=== PATIENT | female | born 1950 | race Caucasian/White ===

== ENCOUNTER 2019-08-26 07:56 | Outpatient (CLI) | payer MEDICARE, OTHER ==
--- NOTE | 2019-08-26 10:26 | CT ---
CTA NECK WITH CONTRAST: INDICATIONS: Neck pain. Cervical radiculopathy and stenosis. HNP and degenerative disk disease are all listed as r easons for exam. TECHNIQUE: Axial tomograms obtained with multiplanar reconstruction and 3D post processing following angio judy col. FINDINGS: Mild atherosclerotic change is seen at the aortic arch. No stenosis at the origin of the arch vessels . The common carotid arteries appear patent and symmetric with no significant atherosclerotic disease. Mild atherosclerotic change seen at the bulbs bilaterally however no stenosis seen in either internal carotid artery. Vertebral arteries are patent and symmetric. Visualized basilar artery appears unremarkable. Intracranial internal carotid arteries are imaged on this exam and appear unremarkable. Review of osseous structures show moderately severe degenerative disk disease involving the cervical spine. Disk narrowing, hypertrophic spurring and spondylosis is prominent at the C3-C4, C4-C5 and C5- C6 levels. C3-C4: Posterior disk bulge and spondylosis compress the cord, producing moderate cervical canal sten osis. Cord compression is more pronounced paracentrally to the left. There is left foraminal stenosis . C4-C5: Slight posterior listhesis is combined with posterior disk bulge and spondylosis. These change s severely compress the cord, resulting in moderate cervical canal stenosis. Bilateral foraminal sten osis. C5-C6: Disk bulge and spondylosis compress the cord resulting in mild to moderate cervical canal sten osis. C6-C7: Posterior disk bulge and spondylosis abut the anterior cord, resulting in mild cervical canal stenosis. Mild left foraminal encroachment due to uncinate hypertrophy. No soft tissue abnormality identified. Incidentally noted is an intraosseous pneumatocyst involving the C4 vertebra, seen posteriorly within this vertebral body, measuring up to 1 cm. IMPRESSION: 1. No evidence of carotid artery stenosis. 2. Moderate to severe degenerative spondylitic changes in the cervical spine with cervical canal sten osis and cord compression, as described above. POS: [facility]
[2019-08-26] MEDS ORDERED: Iopamidol 370 76% 100 ML VIAL ONE (11:29)
== END 2019-08-26 07:57 | disposition home or self-care (01) ==
LOC: CT 07:56 → EDBD 08:30
PROVIDERS: ATTEND Physician Assistant Surgical
DX: M50.10 Cervical disc disorder with radiculopathy, unspecified cervical region (principal); M47.12 Other spondylosis with myelopathy, cervical region; M48.02 Spinal stenosis, cervical region; M50.00 Cervical disc disorder with myelopathy, unspecified cervical region; M47.22 Other spondylosis with radiculopathy, cervical region; G95.20 Unspecified cord compression
CPT/HCPCS: 70498; 82565; Q9967

== ENCOUNTER 2019-10-04 08:17 | Inpatient (IN) | payer MEDICARE, OTHER ==
[2019-10-03 10:27] VITALS: BMI 17.1
[2019-10-04] MEDS ORDERED: Scopolamine 1.5 mg/72 hour Patch ONE (09:06)
[2019-10-04 09:23] LABS: INR-International Normal Ratio 1.1; PTT 27.9 SEC (22.9-36.1); Prothrombin Time 13.8 SEC (12.0-14.7)
[2019-10-04 09:25] LABS: Hemoglobin 16.1 g/dL (12.0-16.0); Mean Corpuscular HGB CONC 33.2 g/dL (32.0-36.0); Mean Corpuscular Hemoglobin 32.1 pg (27.0-31.0); Mean Corpuscular Volume 96.8 fL (78.0-98.0); Mean Platelet Volume 6.5 fL (7.4-10.4); Platelet Count 260 thou/uL (130-400); RBC Distribution Width 11.3 % (11.5-14.5); Red Blood Cell (RBC) Count 5.03 mill/uL (4.20-5.40); White Blood Cell (WBC) Count 5.6 thou/uL (4.8-10.8)
[2019-10-04] MEDS ORDERED: Fentanyl 100 MCG/2 ML VIAL ONE (09:25)
[2019-10-04] MEDS ORDERED: Bacitracin Zinc Ointment 30 gm TUBE ONE (09:35)
[2019-10-04] MEDS ORDERED: Thrombin 5000 UNITS/5 ML VIAL ONE (09:35)
[2019-10-04 09:50] LABS: Anion Gap 13 mmol/L (10-20); BUN (Urea Nitrogen) 15 mg/dL (9.8-20.1); Calc. Creatinine Clearance 50 mL/min (70-130); Carbon Dioxide 30 mmol/L (23-31); Chloride 102 mmol/L (98-107); Estimated GFR-MDRD 73; Glucose 83 mg/dL (83-110); Sodium 141 mmol/L (136-145)
[2019-10-04] MEDS ORDERED: HYDROmorphone 2 MG/ML VIAL ONE (10:50)
[2019-10-04] MEDS ORDERED: ePHEDrine/0.9% NaCl/PF SYRINGE 50 mg/10 ml ONE (11:58)
[2019-10-04] MEDS ORDERED: Rocuronium Bromide 10 MG/ML (10ML VIAL) ONE (11:58)
[2019-10-04] MEDS ORDERED: Dexamethasone 20 MG/5 ML VIAL ONE (11:58)
[2019-10-04] MEDS ORDERED: diphenhydrAMINE 50 MG/ML VIAL ONE (11:58)
[2019-10-04] MEDS ORDERED: Ondansetron PF 4 MG/2 ML Vial ONE (11:58)
[2019-10-04] MEDS ORDERED: Lidocaine 1% PF 5 ML VIAL ONE (11:58)
[2019-10-04] MEDS ORDERED: PHENYLEPHRINE-NS 100 MCG/ML 10 ML SYRINGE ONE (11:58)
[2019-10-04] MEDS ORDERED: PROPOFOL 200 MG/20 ML VIAL ONE (11:58)
[2019-10-04] MEDS ORDERED: Rocuronium Bromide 50 MG/5 ML VIAL ONE (12:37)
[2019-10-04] MEDS ORDERED: Phenylephrine HCL 10 MG/ML VIAL ONE (13:15)
[2019-10-04] MEDS ORDERED: HYDROmorphone 2 MG/ML VIAL SLOW IVP PRN (13:27)
[2019-10-04] MEDS ORDERED: Promethazine HCl 25 MG/ML VIAL SLOW IVP PRN (13:27)
[2019-10-04] MEDS ORDERED: Ondansetron HCl/PF 4 MG/2 ML Vial IVP PRN (13:27)
[2019-10-04] MEDS ORDERED: Meperidine HCl/PF 25 MG/ML VIAL SLOW IVP PRN (13:27)
[2019-10-04] MEDS ORDERED: SUGAMMADEX SODIUM 200 MG/2 ML VIAL ONE (13:38)
[2019-10-04] MEDS ORDERED: Mag-Al 1200 mg/1200 mg/30 ML UDCUP PO PRN (14:31)
[2019-10-04] MEDS ORDERED: Morphine 2 MG/ML SYRINGE SLOW IVP PRN (14:31)
[2019-10-04] MEDS ORDERED: Bisacodyl 10 MG SUPP PR PRN (14:31)
[2019-10-04] MEDS ORDERED: Ondansetron PF 4 MG/2 ML Vial IVP PRN (14:31)
[2019-10-04] MEDS ORDERED: Fleet Enema 133 ML BOT PR PRN (14:31)
[2019-10-04] MEDS ORDERED: Milk Of Magnesia 30 ML UDCUP PO PRN (14:31)
[2019-10-04] MEDS ORDERED: CEFAZOLIN 2 GM in Premix Bag 1 BAG IVPB SCH (17:00)
[2019-10-04] MEDS ORDERED: Morphine 2 MG/ML SYRINGE ONE ×2 (19:09→19:14)
[2019-10-04] MEDS: tiZANidine HCl 4 MG TAB PO PRN (19:51)
[2019-10-04] MEDS: clonazePAM 1 MG TAB PO SCH (19:51)
[2019-10-04] MEDS: Gabapentin 300 MG CAP PO SCH (19:51)
[2019-10-04] MEDS: Sodium Chloride 0.9% 1,000 ML IV SCH (19:54)
[2019-10-04] MEDS: CEFAZOLIN 2 GM in Premix Bag 1 BAG IVPB SCH (22:30)
[2019-10-05] MEDS: traMADol HCl 50 MG TAB PO PRN ×3 (00:21→16:37)
[2019-10-05] MEDS: Sodium Chloride 0.9% 1,000 ML IV SCH ×2 (04:21→16:10)
[2019-10-05] MEDS: CEFAZOLIN 2 GM in Premix Bag 1 BAG IVPB SCH ×3 (04:28→20:45)
[2019-10-05] MEDS: tiZANidine HCl 4 MG TAB PO PRN ×2 (08:51→16:37)
--- NOTE | 2019-10-05 09:01 | OP ---
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 WOUND CLASSIFICATION: Type 1 wound. 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 PROCEDURES PERFORMED: 1. Anterior C3-C4, C4-C5, C5-C6, and C6-C7 diskectomies for decompression of spinal cord nerve roots. 2. Preparation of endplates, C3-C4, C4-C5, C5-C6, C6-C7 with placement of interbody spacers, packed with local bone autograft, obtained from same wound and allograft for arthrodesis, C3-C4, C4-C5, C5-C6, C6-C7. 3. Anterior cervical plate and screw fixation, C3, C4, C5, C6, and C7. 4. Use of operative microscope for microdissection. 5. C3, C4, C5, C6, C7 laminectomies, partial facetectomies, and foraminotomies. 6. Screw and tom fixation posterolaterally, C3, C4, C5, C6, and C7. 7. Posterolateral arthrodesis with local bone autograft obtained from the same incision and allograft, C3, C4, C5, C6, and C7. DESCRIPTION OF PROCEDURE: After informed consent was obtained from the patient, the patient was brought to the OR. Proper patient, pause, and identification were carried out. She was placed under excellent endotracheal anesthesia and positioned supine on the OR table. A right anterior oblique mariel was drawn out. This area was sterilely cleansed, prepared, and draped. Proper patient, pause, and identification were carried out. The wound was then opened with a combination of sharp, monopolar, and blunt dissection, proceeded lateral to the larynx, pharynx, and tracheoesophageal bundle and medial to the right carotid sheath, where we identified the prevertebral layer of deep cervical fascia and exposed the C3, C4, C5, C6, C7 segments and intervening disk segments. We then did diskectomies following localization of C3-C4, C4-C5, C5-C6, C6-C7 with use of the operative microscope for decompression of spinal cord nerve roots at each of those levels, preparation of the endplates with placement of interbody spacers at C3-C4, C4-C5, C5-C6, C6-C7 for arthrodesis. Microscope was removed. Anterior cervical plate and screw fixation from C3 all the way down to C7 then occurred with final tightening, then removed the microscope. Copious irrigation occurred. We maximized hemostasis and closed the wound in anatomic layers over a drain. We then placed Verdin Akilah on the skull and flipped the patient prone and opened up following sterile cleansing, preparation, and draping posteriorly from C3 through C7. Localization film confirmed our area of interest. We then performed laminectomies from C3 all the way down to C7 and screw and tom fixation at C3, C4, C5, C6, C7. After tom placement and final tightening, posterolateral arthrodesis was initiated with local bone autograft obtained from same incision and allograft. We were satisfied with our decompression and our construct. Copious irrigation occurred throughout as did maximizing hemostasis. The wound was then closed in anatomic layers following sprinkling of vancomycin powder. The patient then emerged from anesthesia. Job ID: [id number]
--- NOTE | 2019-10-05 13:35 | PRG ---
DATE OF SERVICE: 10/05/2019 This is Leo Dubon PA-C dictating a report for Saroj Harding MD. Postoperative recheck. Ms. Mcknight is postoperative day #1 having undergone C3-C7 anterior and posterior cervical fusions. The ANA LUISA drain output was 50 mL, so we will leave this in and she will remain on antibiotics. Otherwise, her vital signs have remained stable. Neurologically, she is antigravity and following commands in all the extremities. She does have an [place] collar available for her use, though she is not currently wearing it. We will hope for good pain control as well as mobilization hopefully today, but if not tomorrow, then the patient will require a few more overnights for adequate pain control. Overall, the patient is pleased with her outcome and she appears to be healing well neurologically. Job ID: [id number]
[2019-10-05] MEDS: Gabapentin 300 MG CAP PO SCH (19:40)
[2019-10-05] MEDS: clonazePAM 1 MG TAB PO SCH (19:41)
[2019-10-06] MEDS: tiZANidine HCl 4 MG TAB PO PRN ×2 (02:42→10:42)
[2019-10-06] MEDS: traMADol HCl 50 MG TAB PO PRN ×2 (02:43→10:42)
[2019-10-06] MEDS: CEFAZOLIN 2 GM in Premix Bag 1 BAG IVPB SCH ×3 (05:14→21:06)
[2019-10-06] MEDS: Sodium Chloride 0.9% 1,000 ML IV SCH ×2 (06:43→22:13)
--- NOTE | 2019-10-06 14:51 | PRG ---
DATE OF SERVICE: 10/06/2019 Ms. Mcknight is postoperative day #2 after undergoing C3 through C7 ACDF. Her drain output was 20 mL overnight, with a total of 50 mL output over the last 24 hours. We will leave the drain in for one more night and then remove tomorrow. The patient does report pain in the back of her neck, but denies any pain into her arms. She is able to move her arms and legs without difficulty. She has full strength in her upper and lower extremities bilaterally. She does sound somewhat hoarse. She states that she has had no difficulty swallowing on a full liquid diet. The patient states that she has not had any nausea or vomiting since yesterday morning. She remains wearing her cervical collar even when lying in bed. She states that she has been able to ambulate to the restroom and back. Craig remains in place. We have placed orders for this to be removed and we will perform bladder scans q.4 hours and monitor for any residual urine. This patient has been slightly tachypneic with a respiratory rate of 24 to 25 this morning when she was taken off the nasal cannula and on room air. Her blood pressure is slightly elevated with a systolic into the 140s to 150s this morning. We will continue to monitor this. The patient remains on Ancef while her drain is in place. The patient will likely go home tomorrow. We will re-evaluate her in the morning. Call sooner for any neurologic changes or other concerns. Job ID: [id number]
[2019-10-06] MEDS: clonazePAM 1 MG TAB PO SCH (19:42)
[2019-10-06] MEDS: Gabapentin 300 MG CAP PO SCH (19:42)
[2019-10-07] MEDS: CEFAZOLIN 2 GM in Premix Bag 1 BAG IVPB SCH (04:36)
[2019-10-07] MEDS: Sodium Chloride 0.9% 1,000 ML IV SCH (07:41)
[2019-10-07] MEDS: traMADol HCl 50 MG TAB PO PRN (08:51)
[2019-10-07] MEDS: tiZANidine HCl 4 MG TAB PO PRN (08:51)
[2019-10-07 11:51] VITALS: BP 129/69; TEMP 98.6
--- NOTE | 2019-10-07 12:47 | PRG ---
DATE OF SERVICE: Ms. Mcknight is postoperative day #3 after undergoing C3-C7 ACDF. She reports that she is feeling better today and is ready to be discharged home to where she would be more comfortable. The patient does report pain in her neck, but denies any pain into her arms. She is able to move her arms and legs without difficulty and has good strength throughout her extremities. She remains hoarse but has not had any difficulty swallowing on a full liquid diet. Her anterior cervical ANA LUISA drain was removed without difficulty. She will be discharged home today. Reviewed with the patient postoperative restriction and wound care. The patient states understanding. We provided her with postoperative pain medication prescriptions. She will follow up with us in clinic in approximately two and half weeks. She will call our office sooner for questions or concerns. Job ID: [id number]
--- NOTE | 2019-10-09 23:52 | EKG ---
Test Reason : PREOP Blood Pressure : / mmHG Vent. Rate : 069 BPM Atrial Rate : 069 BPM P-R Int : 092 ms QRS Dur : 090 ms QT Int : 414 ms P-R-T Axes : 064 089 068 degrees QTc Int : 443 ms Sinus rhythm with short ME Nonspecific ST abnormality Abnormal ECG No previous ECGs available Confirmed by Suresh CONTRERAS ([id number]) on 10/09/2019 11:51:34 PM Referred By: RAYNE Confirmed By:Suresh CONTRERAS
== END 2019-10-07 13:20 | disposition home health service (06) | DRG 454 ==
LOC: SURG A 08:17
PROVIDERS: ADMIT Surgery; ATTEND Surgery
PROC: 0RG20A0 Fusion of 2 or more Cervical Vertebral Joints with Interbody Fusion Device, Anterior Approach, Anterior Column, Open Approach (ICD-10-PCS; principal; 2019-10-04)
PROC: 0RG2071 Fusion of 2 or more Cervical Vertebral Joints with Autologous Tissue Substitute, Posterior Approach, Posterior Column, Open Approach (ICD-10-PCS; 2019-10-04)
PROC: 0RB30ZZ Excision of Cervical Vertebral Disc, Open Approach (ICD-10-PCS; 2019-10-04)
PROC: 01N10ZZ Release Cervical Nerve, Open Approach (ICD-10-PCS; 2019-10-04)
DX: M48.02 Spinal stenosis, cervical region (principal); M50.01 Cervical disc disorder with myelopathy, high cervical region; M50.11 Cervical disc disorder with radiculopathy, high cervical region; Z79.899 Other long term (current) drug therapy
CPT/HCPCS: 36415; 76000; 80048; 85027; 85610; 85730; 86850; 86900; 86901; 93005; 93010; C1713; C1768; C1776; J0690; J1100; J1170; J1200; J2001; J2270; J2370; J2405; J2704; J3010; J3370; J3490